=== PATIENT | female | born 1950 | race American Indian/Alaskan Native ===

== ENCOUNTER 2019-10-22 11:25 | Outpatient (CLI) | payer MEDICARE, OTHER | END 2019-10-22 11:26 | disposition home or self-care (01) | LOC: LAB 11:25 | PROVIDERS: ATTEND Specialist | DX: M31.6 Other giant cell arteritis (principal); E07.9 Disorder of thyroid, unspecified | CPT/HCPCS: 36415; 84443; 85652 ==

== ENCOUNTER 2019-10-23 11:00 | Outpatient (CLI) | payer MEDICARE, OTHER | END 2019-10-23 11:01 | disposition home or self-care (01) | LOC: SLR 11:00 | PROVIDERS: ATTEND Specialist | DX: G47.33 Obstructive sleep apnea (adult) (pediatric) (principal); R40.0 Somnolence | CPT/HCPCS: 95810 ==